=== PATIENT | female | born 1980 | race Two or more races ===

== ENCOUNTER 2018-01-26 13:34 | Emergency (ER) | payer MEDICAID ==
[~2018-01-26] VITALS: Ht 152.4 cm; Wt 79.8 kg
[2018-01-26 14:25] LABS: Urine Bacteria NONE SEEN /hpf (None Seen); Urine Blood 2+ /uL (Negative); Urine Specific Gravity 1.018 (1.001-1.035); Urine WBC 2 /hpf (0 - 5)
[2018-01-26 14:29] LABS: Basophils # (auto) 0 uL; Basophils % (auto) 0.6 % (0.0-2.0); Eosinophils # (auto) 0.2 uL; Hematocrit 37.9 % (36.0-46.0); Hemoglobin 12.6 g/dL (12.2-16.2); Lymphocytes # (auto) 1.6 uL; Lymphocytes % (auto) 21.2 % (10.0-50.0); Mean Corpuscular Hemoglobin 30.2 pg (28.0-32.0); Mean Corpuscular Hgb Conc. 33.1 g/dL (32.0-36.0); Mean Corpuscular Volume 91.1 fL (80.0-100.0); Monocytes # (auto) 0.5 uL; Monocytes % (auto) 6.3 % (0.0-12.0); Neutrophils # (auto) 5.3 uL; Neutrophils % (auto) 69.9 % (37.0-80.0); Nucleated Red Blood Cells % 0.1 %; Platelet Count (auto) 272 10^3/uL (140-450); Red Blood Cells 4.17 10^6/uL (4.0-5.20); Red Cell Distribution Width 12.7 % (11.8-14.3); White Blood Cell 7.6 10^3/uL (4.4-10.8)
[2018-01-26 14:51] LABS: Albumin 3.6 g/dL (3.4-5.0); BUN/Creatinine Ratio 13.9; Bilirubin, Total 0.3 mg/dL (0.2-1.0); Calcium 8.2 mg/dL (8.5-10.1); Potassium 3.4 mmol/L (3.5-5.1); Total Protein 6.9 g/dL (6.4-8.2)
[2018-01-26 16:51] VITALS: BP 132/69
== END 2018-01-26 17:42 | disposition home or self-care (01) ==
LOC: ER 13:34
DX: O46.91 Antepartum hemorrhage, unspecified, first trimester (principal); Z3A.01 Less than 8 weeks gestation of pregnancy
CPT/HCPCS: 36415; 76801; 80053; 81001; 81025; 84702; 85025

== ENCOUNTER 2019-03-23 12:55 | Observation (INO) | payer MEDICAID | END 2019-03-23 13:55 | disposition home or self-care (01) | DRG 566 | LOC: LDRP 12:55 | PROVIDERS: ADMIT Obstetrics & Gynecology; ATTEND Obstetrics & Gynecology | DX: O26.892 Other specified pregnancy related conditions, second trimester (principal); M54.9 Dorsalgia, unspecified; O09.523 Supervision of elderly multigravida, third trimester; Z3A.21 21 weeks gestation of pregnancy | CPT/HCPCS: 59025; 81002; G0378 ==

== ENCOUNTER 2019-04-01 13:25 | Observation (INO) | payer MEDICAID | END 2019-04-01 14:30 | disposition home or self-care (01) | DRG 566 | LOC: LDRP 13:25 | PROVIDERS: ADMIT Obstetrics & Gynecology; ATTEND Obstetrics & Gynecology | DX: O26.892 Other specified pregnancy related conditions, second trimester (principal); O09.522 Supervision of elderly multigravida, second trimester; R10.9 Unspecified abdominal pain; R11.0 Nausea; Z3A.23 23 weeks gestation of pregnancy | CPT/HCPCS: 59025; 81002; G0378 ==

== ENCOUNTER 2019-05-21 20:18 | Observation (INO) | payer MEDICAID, OTHER ==
[2019-05-21] MEDS ORDERED: PREN-153 OR (21:13)
[2019-05-21 21:39] LABS: Alcohol, Urine < 3.0 mg/dL (0-5); Amphetamine Screen, Urine NEGATIVE (NEGATIVE); Barbiturate Scree,Urine NEGATIVE (NEGATIVE); Benzodiazephine Screen, Urine NEGATIVE (NEGATIVE); Cannabinoid Screen, Urine NEGATIVE (NEGATIVE); Cocaine Screen, Urine NEGATIVE (NEGATIVE); Opiate Scree,Urine NEGATIVE (NEGATIVE); Phencyclidine Screen, Urine NEGATIVE (NEGATIVE)
[2019-05-21 21:42] LABS: Urine Bacteria NONE SEEN /hpf (None Seen); Urine Blood Negative /uL (Negative); Urine Specific Gravity 1.022 (1.001-1.035); Urine WBC 4 /hpf (0 - 5)
== END 2019-05-21 21:28 | disposition home or self-care (01) | DRG 566 ==
LOC: LDRP 20:18
PROVIDERS: ADMIT Specialist; ATTEND Specialist
DX: O00.01 Abdominal pregnancy with intrauterine pregnancy (principal); O60.03 Preterm labor without delivery, third trimester; O26.893 Other specified pregnancy related conditions, third trimester; O09.523 Supervision of elderly multigravida, third trimester; N89.8 Other specified noninflammatory disorders of vagina; Z3A.30 30 weeks gestation of pregnancy
CPT/HCPCS: 59025; 80307; 81001; 81002; G0378

== ENCOUNTER 2019-12-07 19:45 | Emergency (ER) | payer MEDICAID ==
[~2019-12-07] VITALS: Ht 154.9 cm; Wt 88.9 kg
[2019-12-07 20:25] LABS: Urine Bacteria None Seen /hpf (None Seen)
[2019-12-07 21:03] LABS: Urine WBC TNTC /hpf (0 - 5)
[2019-12-07 21:37] LABS: Basophils # (auto) 0 uL; Basophils % (auto) 0.2 % (0.0-2.0); Eosinophils # (auto) 0.2 uL; Eosinophils % (auto) 1.7 % (0.0-7.0); Hematocrit 29.8 % (36.0-46.0); Hemoglobin 10.2 g/dL (12.2-16.2); Lymphocytes # (auto) 1.5 uL; Lymphocytes % (auto) 12.6 % (10.0-50.0); Mean Corpuscular Hemoglobin 30.5 pg (28.0-32.0); Mean Corpuscular Hgb Conc. 34.4 g/dL (32.0-36.0); Mean Corpuscular Volume 88.6 fL (80.0-100.0); Monocytes # (auto) 0.8 uL; Monocytes % (auto) 6.2 % (0.0-12.0); Neutrophils # (auto) 9.7 uL; Neutrophils % (auto) 79.3 % (37.0-80.0); Platelet Count (auto) 234 10^3/uL (140-450); Red Blood Cells 3.36 10^6/uL (4.0-5.20); Red Cell Distribution Width 12.8 % (11.8-14.3); White Blood Cell 12.2 10^3/uL (4.4-10.8)
[2019-12-07 21:50] LABS: INR 1.01 (0.9-1.15); Partial Thromboplastin Time 25.2 sec (23.64-32.05)
[2019-12-07 21:52] LABS: Potassium 3.3 mmol/L (3.5-5.1)
[2019-12-07 21:59] LABS: Albumin 3.8 g/dL (3.4-5.0); BUN/Creatinine Ratio 17.1; Bilirubin, Total 0.2 mg/dL (0.2-1.0); Calcium 8.8 mg/dL (8.5-10.1); Total Protein 6.7 g/dL (6.4-8.2)
[2019-12-08 03:00] VITALS: BP 115/64
== END 2019-12-08 03:14 | disposition home or self-care (01) ==
LOC: ER 19:49
DX: N93.9 Abnormal uterine and vaginal bleeding, unspecified (principal); K80.20 Calculus of gallbladder without cholecystitis without obstruction; R06.02 Shortness of breath; E78.5 Hyperlipidemia, unspecified; I10 Essential (primary) hypertension
CPT/HCPCS: 36415; 71046; 76705; 80053; 81001; 82150; 83690; 83735; 84702; 85025; 85610; 85730; 86850; 86900; 86901

== ENCOUNTER 2021-06-13 23:25 | Emergency (ER) | payer MEDICAID ==
[~2021-06-13] VITALS: Ht 144.8 cm; Wt 84.4 kg
[2021-06-14 06:46] VITALS: BP 143/96
== END 2021-06-14 05:10 | disposition home or self-care (01) ==
LOC: ER 23:25
DX: S83.8X2A Sprain of other specified parts of left knee, initial encounter (principal); E78.5 Hyperlipidemia, unspecified; I10 Essential (primary) hypertension; W18.39XA Other fall on same level, initial encounter; Y93.89 Activity, other specified; Y92.89 Other specified places as the place of occurrence of the external cause; Y99.8 Other external cause status
CPT/HCPCS: 29505; 73562

== ENCOUNTER 2021-12-13 15:43 | Emergency (ER) | payer MEDICAID ==
[~2021-12-13] VITALS: Ht 154.9 cm; Wt 85.7 kg
[2021-12-13 17:08] LABS: Urine Amorphous Crystal FEW /hpf (None Seen); Urine Bacteria NONE SEEN /hpf (None Seen); Urine Blood Negative /uL (Negative); Urine Specific Gravity 1.014 (1.001-1.035); Urine WBC 2 /hpf (0 - 5)
[2021-12-13 17:13] LABS: Basophils # (auto) 0 10 ^3/uL (0-0.2); Basophils % (auto) 0.5 % (0.0-2.0); Eosinophils # (auto) 0.1 10 ^3/uL (0-0.8); Eosinophils % (auto) 1.8 % (0.0-7.0); Hematocrit 35.6 % (36.0-46.0); Hemoglobin 12.3 g/dL (12.2-16.2); Lymphocytes # (auto) 2.8 10 ^3/uL (0.4-5.4); Mean Corpuscular Hemoglobin 29.9 pg (28.0-32.0); Mean Corpuscular Hgb Conc. 34.6 g/dL (32.0-36.0); Mean Corpuscular Volume 86.4 fL (80.0-100.0); Monocytes # (auto) 0.5 10 ^3/uL (0-1.3); Monocytes % (auto) 6.5 % (0.0-12.0); Neutrophils # (auto) 4.2 10 ^3/uL (1.6-8.6); Neutrophils % (auto) 55.2 % (37.0-80.0); Nucleated Red Blood Cells % 0.1 %; Red Blood Cells 4.13 10^6/uL (4.0-5.20); White Blood Cell 7.7 10^3/uL (4.4-10.8)
[2021-12-13 17:27] LABS: Albumin 3.6 g/dL (3.4-5.0); Calcium 8.8 mg/dL (8.5-10.1); Potassium 3.6 mmol/L (3.5-5.1)
[2021-12-13 17:29] LABS: BUN/Creatinine Ratio 15.2
[2021-12-13 17:32] LABS: Bilirubin, Total 0.2 mg/dL (0.2-1.0); Total Protein 7.5 g/dL (6.4-8.2)
[2021-12-13 21:44] VITALS: BP 138/84
== END 2021-12-13 19:27 | disposition home or self-care (01) ==
LOC: ER 15:43
DX: R10.12 Left upper quadrant pain (principal); M25.532 Pain in left wrist; I10 Essential (primary) hypertension; E78.5 Hyperlipidemia, unspecified
CPT/HCPCS: 36415; 74176; 80053; 81001; 81025; 82150; 83690; 85025; 93005

== ENCOUNTER 2021-12-23 22:57 | Emergency (ER) | payer MEDICAID ==
[~2021-12-23] VITALS: Ht 154.9 cm; Wt 85.7 kg
[2021-12-24 00:14] LABS: Basophils # (auto) 0 10 ^3/uL (0-0.2); Basophils % (auto) 0.6 % (0.0-2.0); Eosinophils # (auto) 0.2 10 ^3/uL (0-0.8); Hematocrit 35.9 % (36.0-46.0); Hemoglobin 12.3 g/dL (12.2-16.2); Lymphocytes # (auto) 2.3 10 ^3/uL (0.4-5.4); Lymphocytes % (auto) 28.3 % (10.0-50.0); Mean Corpuscular Hemoglobin 29.5 pg (28.0-32.0); Mean Corpuscular Hgb Conc. 34.1 g/dL (32.0-36.0); Mean Corpuscular Volume 86.6 fL (80.0-100.0); Monocytes # (auto) 0.5 10 ^3/uL (0-1.3); Monocytes % (auto) 6.1 % (0.0-12.0); Neutrophils # (auto) 5.2 10 ^3/uL (1.6-8.6); Nucleated Red Blood Cells % 0.3 %; Red Blood Cells 4.15 10^6/uL (4.0-5.20); Red Cell Distribution Width 12.8 % (11.8-14.3); White Blood Cell 8.3 10^3/uL (4.4-10.8)
[2021-12-24 00:24] LABS: Albumin 3.4 g/dL (3.4-5.0); BUN/Creatinine Ratio 18.2; Potassium 3.6 mmol/L (3.5-5.1)
[2021-12-24 00:54] LABS: Urine Bacteria NONE SEEN /hpf (None Seen); Urine Blood 1+ /uL (Negative); Urine Mucus FEW (None Seen); Urine Specific Gravity 1.021 (1.001-1.035); Urine WBC 7 /hpf (0 - 5)
[2021-12-24 01:02] LABS: Bilirubin, Total 0.2 mg/dL (0.2-1.0); Calcium 8.5 mg/dL (8.5-10.1)
[2021-12-24 04:00] VITALS: BP 140/66
[2021-12-24] MEDS ORDERED: NITR-87 PO (04:09)
== END 2021-12-24 04:12 | disposition home or self-care (01) ==
LOC: ER 22:57
DX: K80.20 Calculus of gallbladder without cholecystitis without obstruction (principal); E78.5 Hyperlipidemia, unspecified; I10 Essential (primary) hypertension
CPT/HCPCS: 36415; 76705; 80053; 81001; 85025

== ENCOUNTER 2022-05-19 11:31 | Emergency (ER) | payer MEDICAID ==
[~2022-05-19] VITALS: Ht 154.9 cm; Wt 88.6 kg
[~2022-05-19 11:31] MED LIST: NITR-87 PO
[2022-05-19 13:17] VITALS: BP 136/98
[2022-05-19 14:09] LABS: Basophils # (auto) 0.1 10 ^3/uL (0-0.2); Basophils % (auto) 0.8 % (0.0-2.0); Eosinophils # (auto) 0.2 10 ^3/uL (0-0.8); Eosinophils % (auto) 2.6 % (0.0-7.0); Hematocrit 37.8 % (36.0-46.0); Hemoglobin 12.8 g/dL (12.2-16.2); Lymphocytes # (auto) 1.9 10 ^3/uL (0.4-5.4); Mean Corpuscular Hemoglobin 29.4 pg (28.0-32.0); Mean Corpuscular Hgb Conc. 33.9 g/dL (32.0-36.0); Monocytes # (auto) 0.4 10 ^3/uL (0-1.3); Monocytes % (auto) 4.7 % (0.0-12.0); Neutrophils # (auto) 5.1 10 ^3/uL (1.6-8.6); Neutrophils % (auto) 66.9 % (37.0-80.0); Nucleated Red Blood Cells % 0.1 %; Red Blood Cells 4.35 10^6/uL (4.0-5.20); Red Cell Distribution Width 12.8 % (11.8-14.3); White Blood Cell 7.6 10^3/uL (4.4-10.8)
[2022-05-19 14:37] LABS: Albumin 3.6 g/dL (3.4-5.0); Calcium 8.8 mg/dL (8.5-10.1); Magnesium 2.2 mg/dL (1.6-2.6); Potassium 4.1 mmol/L (3.5-5.1)
[2022-05-19 14:42] LABS: BUN/Creatinine Ratio 17.9; Bilirubin, Total 0.2 mg/dL (0.2-1.0); Total Protein 7.5 g/dL (6.4-8.2)
[2022-05-19 14:44] LABS: Urine Bacteria FEW /hpf (None Seen); Urine Blood 2+ /uL (Negative); Urine WBC <1 /hpf (0 - 5)
[2022-05-19] MEDS ORDERED: IOHEXOL 350 MG/ML 100ML IJ ONE (17:50)
== END 2022-05-19 22:58 | disposition home or self-care (01) ==
LOC: ER 11:31
DX: R06.02 Shortness of breath (principal); E78.5 Hyperlipidemia, unspecified; I10 Essential (primary) hypertension; Z90.49 Acquired absence of other specified parts of digestive tract; Z32.02 Encounter for pregnancy test, result negative
CPT/HCPCS: 36415; 71046; 71275; 80053; 81001; 81025; 83735; 84484; 85025; 85379; 93005; 99285; Q9967

== ENCOUNTER 2023-05-21 06:54 | Emergency (ER) | payer MEDICAID ==
[~2023-05-21] VITALS: Ht 154.9 cm; Wt 99.2 kg
[2023-05-21 07:58] LABS: Urine Bacteria FEW /hpf (None Seen); Urine Blood 1+ /uL (Negative); Urine Mucus FEW (None Seen); Urine Specific Gravity 1.018 (1.001-1.035); Urine WBC 1 /hpf (0 - 5)
[2023-05-21 09:12] LABS: Basophils # (auto) 0 10 ^3/uL (0-0.2); Basophils % (auto) 0.5 % (0.0-2.0); Eosinophils # (auto) 0.3 10 ^3/uL (0-0.8); Eosinophils % (auto) 3.3 % (0.0-7.0); Hemoglobin 12.7 g/dL (12.2-16.2); Lymphocytes # (auto) 2.4 10 ^3/uL (0.4-5.4); Lymphocytes % (auto) 27.2 % (10.0-50.0); Mean Corpuscular Hemoglobin 29.3 pg (28.0-32.0); Mean Corpuscular Hgb Conc. 33.3 g/dL (32.0-36.0); Mean Corpuscular Volume 87.9 fL (80.0-100.0); Monocytes # (auto) 0.5 10 ^3/uL (0-1.3); Monocytes % (auto) 5.8 % (0.0-12.0); Neutrophils # (auto) 5.5 10 ^3/uL (1.6-8.6); Neutrophils % (auto) 63.2 % (37.0-80.0); Red Blood Cells 4.33 10^6/uL (4.0-5.20); Red Cell Distribution Width 12.9 % (11.8-14.3); White Blood Cell 8.7 10^3/uL (4.4-10.8)
[2023-05-21 09:16] LABS: BUN/Creatinine Ratio 18.8 (10.0-20.0); Calcium 8.5 mg/dL (8.5-10.1)
[2023-05-21] MEDS ORDERED: KETOROLAC TROMETH 60MG/2ML VIAL IM ONE (09:45)
[2023-05-21] MEDS ORDERED: IBUP-1456 PO (09:59)
[2023-05-21 10:12] VITALS: BP 150/68; PULSE 73; RESP 18
[2023-05-21 10:13] VITALS: O2SAT 98
== END 2023-05-21 10:14 | disposition home or self-care (01) ==
LOC: ER 06:54
DX: N83.201 Unspecified ovarian cyst, right side (principal); N88.8 Other specified noninflammatory disorders of cervix uteri; E78.5 Hyperlipidemia, unspecified; I10 Essential (primary) hypertension; Z32.02 Encounter for pregnancy test, result negative
CPT/HCPCS: 36415; 76830; 76856; 80048; 81001; 81025; 85025; 96372; 99285; J1885

== ENCOUNTER 2025-05-14 17:13 | Emergency (ER) | payer MEDICAID ==
[~2025-05-14] VITALS: Ht 154.9 cm; Wt 87.9 kg
[~2025-05-14 17:13] MED LIST changes: +IBUP-1456 PO
--- NOTE | 2025-05-14 17:59 | ED.PDOC ---
GI ASSESSMENT HPI Comments 44-year-old female with PMHx GERD presents with a chief complaint of abdominal pain x onset Tuesday after eating Salsa with associated nausea and vomiting. Patient states that she had a bowl of salsa on Tuesday and since then has been burping a lot and having epigastric pain. Patient reports that after eating she has nausea and vomiting. Patient has been diagnosed with GERD and has had her gallbladder removed. Chief Complaint: Abdominal Pain Time Seen by MD: 17:50 Primary Care Provider: CONOR Segal Notes: Nurses Notes, Medications, Allergies Allergies: Coded Allergies: NO KNOWN ALLERGIES (Unverified , 06/24/15) Home Meds Active Scripts Ibuprofen (Ibuprofen) 800 Mg Tab, 1 TAB PO TID, #30 TAB Prov:ISMAEL NELSON 05/21/23 Nitrofurantoin Monohydrate Mac (Macrobid) 100 Mg Cap, 100 MG PO BID for 7 Days, #14 CAP Prov:YANICK LIMA MD 12/24/21 Information Source: Patient Mode of Arrival: Ambulatory Timing: Days Duration: Since onset Prehospital treatment: None Quality: Cramping Vomitus: Food Particles Stool: Normal Severity: Moderate Recent: None Recent Hx of: None Pain Location: Epigastric Associated sign and symptoms: Nausea, Vomiting, Abdominal Pain Past Medical History PAST MEDICAL HISTORY: Gallstones, High Lipids, HTN Surgical History: Denies all surgeries 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 Family History Family History: Reviewed,noncontributory to illness Social History Smoker: Non-Smoker Alcohol: Denies ETOH Use Drugs: Denies Drug Use Lives In: Home Constitutional: denies: chills, diaphoresis, fatigue, fever, malaise, sweats, weakness, others EENTM: denies: blurred vision, double vision, ear bleeding, ear discharge, ear drainage, ear pain, ear ringing, eye pain, eye redness, hearing loss, mouth pain, mouth swelling, nasal discharge, nose bleeding, nose congestion, nose pain, photophobia, tearing, throat pain, throat swelling, voice changes, others Respiratory: denies: cough, hemoptysis, orthopnea, SOB at rest, shortness of breath, SOB with excertion, stridor, wheezing, others Cardiovascular: denies: chest pain, dizzy spells, diaphoresis, Dyspnea on exertion, edema, irregular heart beat, left arm pain, lightheadedness, palpitations, PND, syncope, others Gastrointestinal: reports: abdominal pain, nausea, vomiting; denies: abdomen distended, blood streaked bowels, constipated, diarrhea, dysphagia, difficulty swallowing, hematemesis, melena, poor appetite, poor fluid intake, rectal bleeding, rectal pain, others Genitourinary: denies: abnormal vagina bleeding, burning, dyspareunia, dysuria, flank pain, frequency, hematuria, incontinence, pain, , vagina discharge, urgency, others Neurological: denies: dizziness, fainting, headache, left sided numbness, left sided weakness, numbness, paresthesia, pre-existing deficit, right sided numbness, right sided weakness, seizure, speech problems, tingling, tremors, weakness, others Musculoskeletal: denies: back pain, gout, joint pain, joint swelling, muscle pain, muscle stiffness, neck pain, others Integumetry: denies: bruises, change in color, change in hair/nails, dryness, laceration, lesions, lumps, rash, wounds, others Allergic/Immunocompromised: denies: Difficulty Healing, Frequent Infections, Hives, Itching, others Hematologic/Lymphatic: denies: anemia, blood clots, easy bleeding, easy bruising, swollen glands, others Endocrine: denies: excessive hunger, excessive sweating, excessive thirst, excessive urination, flushing, intolerance to cold, intolerance to heat, unexplained weight gain, unexplained weight loss, others Psychiatric: denies: anxiety, bipolar disorder, depression, hopeless, panic disorder, schizophrenia, sleepless, suicidal, others All Other Systems: Reviewed and Negative Physical Exam General Appearance: Moderate Distress HEENT: Normal ENT Inspection, Pharynx Normal, TMs Normal Neck: Full Range of Motion, Non-Tender, Normal, Normal Inspection Respiratory: Chest Non-Tender, Lungs Clear, No Accessory Muscle Use, No Respiratory Distress, Normal Breath Sounds Cardiovascular: No Edema, No JVD, No Murmur, No Gallop, Normal Peripheral Pulses, Regular Rate/Rhythm Breast Exam: Deferred Gastrointestinal: No Organomegaly, Non Tender, No Pulsatile Mass, Normal Bowel Sounds, Soft Genitalia: Deferred Pelvic: Deferred Rectal: Deferred Extremities: No calf tenderness, Normal capillary refill, Normal inspection, Normal range of motion, Non-tender, No pedal edema Musculoskeletal : Apperance: Normal Neurologic: Alert, sheepskin pickler II-XII nml as Tested, No Motor Deficits, Normal Affect, Normal Mood, No Sensory Deficits Cerebellar Function: Normal Reflexes: Normal Skin: Dry, Normal Color, Warm Lymphatic: No Adenopathy Was a procedure done? Was a procedure done?: No GI differential Dx Differential Diagnosis: Gastritis/PUD, Gastroenteritis, Inflammatory BD, Ischemic Bowel, Pancreatitis, Electrolyte Imbalance, Food Poisoning X-Ray, Labs, Meds, VS Vital Signs Date Time Temp Pulse Resp B/P (MAP) Pulse Ox O2 Delivery O2 Flow Rate FiO2 05/14/25 18:43 98.4 65 18 133/63 (86) 98 98.4 05/14/25 18:43 65 16 98 Room Air* 0 21 05/14/25 17:23 98.3 75 21 134/73 (93) 96 98.3 Lab Test 05/14/25 18:19 05/14/25 17:25 Range/Units White Blood Count 7.8 4.4-10.8 10^3/uL Red Blood Count 4.17 4.0-5.20 10^6/uL Hemoglobin 12.4 12.2-16.2 g/dL Hematocrit 36.7 36.0-46.0 % Mean Corpuscular Volume 88.0 80.0-100.0 fL Mean Corpuscular Hemoglobin 29.8 28.0-32.0 pg Mean Corpuscular Hemoglobin Concent 33.9 32.0-36.0 g/dL Red Cell Distribution Width 13.0 11.8-14.3 % Platelet Count 337 140-450 10^3/uL Mean Platelet Volume 7.1 6.9-10.8 fL Neutrophils (%) (Auto) 53.1 37.0-80.0 % Lymphocytes (%) (Auto) 34.6 10.0-50.0 % Monocytes (%) (Auto) 7.4 0.0-12.0 % Eosinophils (%) (Auto) 4.3 0.0-7.0 % Basophils (%) (Auto) 0.6 0.0-2.0 % Neutrophils # (Auto) 4.2 1.6-8.6 10 ^3/uL Lymphocytes # (Auto) 2.7 0.4-5.4 10 ^3/uL Monocytes # (Auto) 0.6 0-1.3 10 ^3/uL Eosinophils # (Auto) 0.3 0-0.8 10 ^3/uL Basophils # (Auto) 0 0-0.2 10 ^3/uL Nucleated Red Blood Cells 0.0 % Sodium Level 141 136-145 mmol/L Potassium Level 3.7 3.5-5.1 mmol/L Chloride Level 106 98-107 mmol/L Carbon Dioxide Level 26 20-31 mmol/L Anion Gap 9 5-15 Blood Urea Nitrogen 12 9-23 mg/dL Creatinine 0.70 0.550-1.02 mg/dL Glomerular Filtration Rate Calc 109 >90 mL/min BUN/Creatinine Ratio 17.1 10.0-20.0 Serum Glucose 88 74-106 mg/dL Calcium Level 8.7 8.7-10.4 mg/dL Total Bilirubin 0.2 0.2-1.0 mg/dL Aspartate Amino Transferase (AST) 13 13-40 U/L Alanine Aminotransferase (ALT) < 9 7-40 U/L Alkaline Phosphatase 53 46-116 U/L Total Protein 6.9 5.7-8.2 g/dL Albumin 4.5 3.2-4.8 g/dL Lipase 39 12-53 U/L Urine Color Light-yellow Yellow Urine Clarity Turbid H Clear Urine pH 7.0 5.0-9.0 Urine Specific Moyers 1.020 1.001-1.035 Urine Protein Negative Negative Urine Ketones Negative Negative Urine Blood 1+ H Negative /uL Urine Nitrite Negative Negative Urine Bilirubin Negative Negative Urine Urobilinogen Normal Negative mg/dL Urine Leukocyte Esterase Negative Negative /uL Urine RBC 7 0 - 4 /hpf Urine Microscopic WBC 1 0-5 /HPF Urine Squamous Epithelial Cells Few <5 /hpf Urine Amorphous Crystals Mod None Seen /hpf Urine Bacteria Few H None Seen /hpf Urine Glucose Normal Normal mg/dL Current Medications Medications (Trade) Dose Ordered Sig/Terence Route Start Time Stop Time Status Last Admin Sodium Chloride 1,000 ml @ 1,000 mls/hr Q1H ONCE IVB 05/14/25 18:15 05/14/25 19:14 DC 05/14/25 18:35 Pantoprazole Sodium (Protonix) 40 mg ONCE ONCE IV 05/14/25 18:15 05/14/25 18:23 DC 05/14/25 18:35 Prochlorperazine Edisylate (Compazine Inj) 10 mg ONCE ONCE IV 05/14/25 18:15 05/14/25 18:23 DC 05/14/25 18:35 CAT scan of the abdomen and pelvis shows: IMPRESSION: Limited evaluation without contrast. Inflammatory stranding surrounding the pancreatic head / duodenal region. Correlate for duodenitis, pancreatitis. Cholecystectomy. Moderate volume stool in the colon. Colonic diverticular disease. IV Hep-Lock was established The patient was given a 1 L bolus of normal saline The patient was given Protonix 40 mg IV push The patient was given Compazine 10 mg IV push There is a concern for acute pancreatitis. Patient's lipase is within normal limits but the patient is still having pain The liver enzymes are within normal limits The CBC is within normal limits The patient is being admitted at this time Images Reviewed?: Images reviewed and evaluated by me Time of 1ST Reevaluation: 18:20 Reevaluation 1ST: Unchanged Time of 2ND Reevaluation: 19:49 Reevaluation 2ND: Unchanged Patient Education/Counseling: Diagnosis, Treatment, Prognosis Family Education/Counseling: No Family Present SEPSIS Sepsis Screen Date sepsis recognized/suspect: May 14, 2025 Time Sepsis recognized/suspect: 1722 Recent Procedure: No On Antibiotic Therapy: No Respiratory Rate >20: No Heart Rate >90: No Temp<36 C (96.8 F) or >38.3 C: No SBP <90 or MAP <65 mmHG: No New Acute Mental Status Change: No Is the patient on CPAP, BIPAP,: No Physician Orders Ct Ab Pel Wo Con-No Oral Or Iv (05/14/25 18:10) Heplock Iv (05/14/25 18:10) Vital Signs Date Time Temp Pulse Resp B/P (MAP) Pulse Ox O2 Delivery O2 Flow Rate FiO2 05/14/25 18:43 98.4 65 18 133/63 (86) 98 98.4 05/14/25 18:43 65 16 98 Room Air* 0 21 05/14/25 17:23 98.3 75 21 134/73 (93) 96 98.3 Laboratory Tests Test 05/14/25 18:19 White Blood Count 7.8 10^3/uL (4.4-10.8) Medications Medications Dose Ordered Sig/Terence Route Start Time Stop Time Status Last Admin Dose Admin Pantoprazole Sodium 40 mg ONCE ONCE IV 05/14/25 18:15 05/14/25 18:23 DC 05/14/25 18:35 Prochlorperazine Edisylate 10 mg ONCE ONCE IV 05/14/25 18:15 05/14/25 18:23 DC 05/14/25 18:35 Sodium Chloride 1,000 ml @ 1,000 mls/hr Q1H ONCE IVB 05/14/25 18:15 05/14/25 19:14 DC 05/14/25 18:35 Departure 1 Departure Time of Disposition: 19:48 Impression: Primary Impression: Intractable abdominal pain Additional Impression: Duodenitis Disposition: ADMITTED INPATIENT Admit to: Med Surg Condition: Fair Critical Care Note Critical Care Time?: No Stability Stability form required: Yes Unstable for transfer: ED Physician Assesment (Clinical assesment) Heart Score Heart Score: Heart Score Response (Comments) Value History N/A 0 EKG N/A 0 Age N/A 0 Risk Factors N/A 0 Troponin N/A 0 Total 0 I personally scribed for TAIWO RAYA MD ([email or web address]) on 05/14/25 at 17:59. Electronically submitted by Jan Nassar ([email or web address]). TAIWO RAYA MD May 14, 2025 17:59
[2025-05-14 18:30] LABS: Hematocrit 36.7 % (36.0-46.0); Hemoglobin 12.4 g/dL (12.2-16.2); Mean Corpuscular Hemoglobin 29.8 pg (28.0-32.0); Mean Corpuscular Volume 88.0 fL (80.0-100.0); Nucleated Red Blood Cells % 0.0 %
[2025-05-14] MEDS: PANTOPRAZOLE 40 MG/10 ML VIAL INJ IV ONE (18:35)
[2025-05-14] MEDS: SODIUM CHLORIDE 0.9% 1,000 ML IVB ONE (18:35)
[2025-05-14] MEDS: PROCHLORPERAZINE EDISYLATE 5 MG/ML 2ML VIAL IV ONE (18:35)
[2025-05-14 18:43] VITALS: BP 133/63; PULSE 65; RESP 16; TEMP 98.4; O2SAT 98
[2025-05-14 18:48] LABS: Alanine Aminotransferase < 9 U/L (7-40); Albumin 4.5 g/dL (3.2-4.8); Alkaline Phosphatase 53 U/L (46-116); Anion Gap 9 (5-15); BUN/Creatinine Ratio 17.1 (10.0-20.0); Blood Urea Nitrogen 12 mg/dL (9-23); Calcium 8.7 mg/dL (8.7-10.4); Carbon Dioxide 26 mmol/L (20-31); Chloride 106 mmol/L (98-107); Glucose 88 mg/dL (74-106); Lipase 39 U/L (12-53); Potassium 3.7 mmol/L (3.5-5.1); Sodium 141 mmol/L (136-145); Total Protein 6.9 g/dL (5.7-8.2)
[2025-05-14 18:50] LABS: Bilirubin, Total 0.2 mg/dL (0.2-1.0)
--- NOTE | 2025-05-14 18:52 | DVH ---
Indication: pain Technique: CT axial images of the abdomen and pelvis are obtained without contrast. Coronal and sagit chano reformats were obtained. Radiation Dose Information: CTDI volume is 0.07 mGy. Dose-length product is 3.92 mGy*cm Comparison: CT ABD PELVIS WO CONTRAST on DOS: 12/13/21 FINDINGS: There is limited interpretation of the abdomen and pelvis without administration of intravenous contr ast. Lung bases demonstrate no pleural effusion. Adrenal glands, unremarkable in shape. Liver unremarkable in shape. Cholecystectomy. There is mild s tranding surrounding the duodenum and pancreatic head region The kidneys demonstrate no hydronephrosis /nephrolithiasis. Stomach is partially distended. No evidence for small bowel obstruction. Colonic diverticula. Moderate volume stool within the colon. Normal appendix. Bladder partially distended. No free pelvic fluid. No inguinal lymphadenopathy. [id number] bilateral sacroiliac degenerative joint disease. [id number] thoracolumbar degenerative disease. IMPRESSION: Limited evaluation without contrast. Inflammatory stranding surrounding the pancreatic head / duodenal region. Correlate for duodenitis, pancreatitis. Cholecystectomy. Moderate volume stool in the colon. Colonic diverticular disease. Other findings as described.
[2025-05-14 19:25] LABS: Urine Amorphous Crystal MOD /hpf (None Seen); Urine Protein, UAD Negative (Negative)
== END 2025-05-14 20:07 | disposition left against medical advice (07) ==
LOC: ER 17:13
DX: K29.80 Duodenitis without bleeding (principal); R10.13 Epigastric pain; E78.5 Hyperlipidemia, unspecified; I10 Essential (primary) hypertension; K21.9 Gastro-esophageal reflux disease without esophagitis; Z79.1 Long term (current) use of non-steroidal anti-inflammatories (NSAID); Z90.49 Acquired absence of other specified parts of digestive tract; Z79.899 Other long term (current) drug therapy
CPT/HCPCS: 36415; 74176; 80053; 81001; 83690; 85025; 96361; 96374; 96375; 99285; J0780; J2470; J7030

== ENCOUNTER 2025-08-20 23:20 | Emergency (ER) | payer MEDICAID ==
[~2025-08-20] VITALS: Ht 154.9 cm; Wt 88.0 kg
[2025-08-20 23:22] VITALS: BP 143/95; PULSE 90; RESP 20; TEMP 97.2; O2SAT 98
[2025-08-21] MEDS ORDERED: OMEP-434 PO (01:07)
--- NOTE | 2025-08-21 01:08 | ED.PDOC ---
GI ASSESSMENT HPI Comments 44-year-old female complaining of epigastric pain. Patient states she had pizza at home wakes today for dinner which triggered her gastritis. States she has a history of gastric reflux. Says the last time she had a flare-up like this was months ago. States pain started approximately 1 hour ago. 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 Family History Family History: Reviewed,noncontributory to illness Social History Smoker: Non-Smoker Alcohol: Denies ETOH Use Drugs: Denies Drug Use Lives In: Home Constitutional: denies: chills, diaphoresis, fatigue, fever, malaise, sweats, weakness, others EENTM: denies: blurred vision, double vision, ear bleeding, ear discharge, ear drainage, ear pain, ear ringing, eye pain, eye redness, hearing loss, mouth pain, mouth swelling, nasal discharge, nose bleeding, nose congestion, nose pain, photophobia, tearing, throat pain, throat swelling, voice changes, others Respiratory: denies: cough, hemoptysis, orthopnea, SOB at rest, shortness of breath, SOB with excertion, stridor, wheezing, others Cardiovascular: denies: chest pain, dizzy spells, diaphoresis, Dyspnea on exertion, edema, irregular heart beat, left arm pain, lightheadedness, palpitations, PND, syncope, others Gastrointestinal: reports: abdomen distended, abdominal pain, nausea; denies: blood streaked bowels, constipated, diarrhea, dysphagia, difficulty swallowing, hematemesis, melena, poor appetite, poor fluid intake, rectal bleeding, rectal pain, vomiting, others Genitourinary: denies: abnormal vagina bleeding, burning, dyspareunia, dysuria, flank pain, frequency, hematuria, incontinence, pain, , vagina discharge, urgency, others Neurological: denies: dizziness, fainting, headache, left sided numbness, left sided weakness, numbness, paresthesia, pre-existing deficit, right sided numbness, right sided weakness, seizure, speech problems, tingling, tremors, weakness, others Musculoskeletal: denies: back pain, gout, joint pain, joint swelling, muscle pain, muscle stiffness, neck pain, others Integumetry: denies: bruises, change in color, change in hair/nails, dryness, laceration, lesions, lumps, rash, wounds, others Hematologic/Lymphatic: denies: anemia, blood clots, easy bleeding, easy bruising, swollen glands, others Physical Exam General Appearance: No Apparent Distress, Normal HEENT: Normal ENT Inspection, Pharynx Normal, TMs Normal Neck: Full Range of Motion, Non-Tender, Normal, Normal Inspection Respiratory: Chest Non-Tender, Lungs Clear, No Accessory Muscle Use, No Respiratory Distress, Normal Breath Sounds Cardiovascular: No Edema, No JVD, No Murmur, No Gallop, Normal Peripheral Pul ses, Regular Rate/Rhythm Breast Exam: Deferred Gastrointestinal: Epigastric (Tender to palpation), No Organomegaly, No Pulsatile Mass, Normal Bowel Sounds, Soft Genitalia: Deferred Pelvic: Deferred Rectal: Deferred Extremities: No calf tenderness, Normal capillary refill, Normal inspection, Normal range of motion, Non-tender, No pedal edema Musculoskeletal : Apperance: Normal Neurologic: Alert, safety deposit clerk II-XII nml as Tested, No Motor Deficits, Normal Affect, Normal Mood, No Sensory Deficits Cerebellar Function: Normal Reflexes: Normal Skin: Dry, Normal Color, Warm Lymphatic: No Adenopathy Was a procedure done? Was a procedure done?: No GI differential Dx Differential Diagnosis: Bowel Obstruction, Cholangitis, Cholecystitis, Constipation, Gastritis/PUD, Gastroenteritis, GI hemorrhage, Hepatitis X-Ray, Labs, Meds, VS Vital Signs Date Time Temp Pulse Resp B/P (MAP) Pulse Ox O2 Delivery O2 Flow Rate FiO2 08/20/25 23:22 97.2 90 20 143/95 98 97.2 X-Ray, Labs, Meds, VS Comment Imaging was reviewed by this provider, there is no obvious pathological or acute disease process. Pending radiology review Labs were reviewed by this provider, no abnormalities Vital signs reviewed by this provider, clinically stable Time of 1ST Reevaluation: 01:08 Reevaluation 1ST: Improved Patient Education/Counseling: Diagnosis, Treatment, Need For Follow Up (Follow up with PCP next available appointment. Return to emergency department if symptoms worsen.) Family Education/Counseling: Diagnosis SEPSIS Sepsis Screen Date sepsis recognized/suspect: Aug 20, 2025 Time Sepsis recognized/suspect: 2324 Recent Procedure: No On Antibiotic Therapy: No Respiratory Rate >20: No Heart Rate >90: No Temp<36 C (96.8 F) or >38.3 C: No SBP <90 or MAP <65 mmHG: No New Acute Mental Status Change: No Is the patient on CPAP, BIPAP,: No Vital Signs Date Time Temp Pulse Resp B/P (MAP) Pulse Ox O2 Delivery O2 Flow Rate FiO2 08/20/25 23:22 97.2 90 20 143/95 98 97.2 Departure 1 Departure Time of Disposition: 01:07 Impression: Primary Impression: Gastritis Qualified Codes: K29.00 - Acute gastritis without bleeding Disposition: 01 HOME / SELF CARE / HOMELESS Condition: Fair e-Prescriptions Omeprazole Magnesium (Omeprazole) 20 Mg Tab 20 MG PO DAILY for 20 Days, #20 TAB Prov: JORGE WAGGONER 08/21/25 Discharged With: Self Critical Care Note Critical Care Time?: No Stability Stability form required: No Heart Score Heart Score: Heart Score Response (Comments) Value History N/A 0 EKG N/A 0 Age N/A 0 Risk Factors N/A 0 Troponin N/A 0 Total 0 JORGE WAGGONER Aug 21, 2025 01:08
[2025-08-21] MEDS: LIDOCAINE VISCOUS 2% 15ML UD MT ONE (01:28)
[2025-08-21] MEDS: MAALOX PLUS or MAALOX 30 ML PO ONE (01:28)
== END 2025-08-21 01:29 | disposition home or self-care (01) ==
LOC: ER 23:20
DX: K29.70 Gastritis, unspecified, without bleeding (principal); I10 Essential (primary) hypertension